=== PATIENT | female | born 1940 | race Caucasian/White ===

== ENCOUNTER 2016-04-20 16:59 | Emergency (ER) | payer MEDICARE, OTHER ==
[2016-04-20 18:37] LABS: Troponin I Less than 0.010 ng/mL (< 0.028)
[2016-04-20 18:45] LABS: Anion Gap 13 mmol/L (10-20); BUN (Urea Nitrogen) 20 mg/dL (9.8-20.1); Calc. Creatinine Clearance 0 mL/min (70-130); Calcium 9.8 mg/dL (7.8-10.44); Carbon Dioxide 24 mmol/L (23-31); Chloride 108 mmol/L (98-107); Estimated GFR-MDRD 74
--- NOTE | 2016-04-20 19:43 | ERRECORD ---
[facility] EMERGENCY RECORD HPI EXTREMITY (18:02 WMEI) CHIEF COMPLAINT: Denies injury, Patient presents for evaluation of pain, to the left lower leg, Denies swelling to the ankle, Denies tenderness. HISTORIAN: History provided by patient. MECHANISM OF INJURY: Unknown mechanism. LOCATION: Symptoms are localized, most severe in the left lower leg. TIME COURSE: Patient unable to describe onset of symptoms, Symptoms have resolved, pain intermittent especially at night over ant tibia mid to distal no pain on wt bearing. EXACERBATED BY: Patient's condition exacerbated by nothing. RELIEVED BY: Patient's condition relieved by nothing. ROS (18:04 WMEI) CONSTITUTIONAL: Historian denies chills, denies fever. EYES: Historian denies eye pain, denies eye discharge. ENT: Historian denies otalgia, reports rhinorrhea, reports sinus pain, denies sore throat. CARDIOVASCULAR: Historian denies chest pain, no radiation. RESPIRATORY: Historian reports cough, reports shortness of breath. SOB intermittent non exertional. GI: Historian denies abdominal pain, denies nausea, denies vomiting. GENITOURINARY FEMALE: Historian denies frequency, denies urgency. MUSCULOSKELETAL: Historian denies injury, denies joint stiffness, denies joint swelling. see hpi l ant leg pain. SKIN: Historian denies skin changes, denies skin lesions. NEUROLOGIC: Historian denies focal weakness, denies mental status changes, denies paresthesias. PSYCHIATRIC: Historian denies alcohol abuse, reports anxiety, denies depression. PAST MEDICAL HISTORY (17:14 LGIB) MEDICAL HISTORY: Past medical history includes gastrointestinal disease, irritable bowel syndrome, Flu vaccine not up to date, Tetanus not up to date, Pneumococcal vaccine not up to date, Past medical history includes gastrointestinal disease, gastroesophageal reflux disease, Past medical history includes pulmonary disease, asthma. FEMALE SURGICAL HISTORY: COLON RESECTION IN 1998, Surgical history of appendectomy, Surgical history of cholecystectomy, Surgical history of hysterectomy, Surgical history of tonsillectomy. PSYCHIATRIC HISTORY: No previous psychiatric history. SOCIAL HISTORY: Patient denies alcohol use, Patient denies drug use, Patient has no smoking history. FAMILY HISTORY: Pt's mother had diverticulitis. &a-1R&a+25V*p+0X*d0951C*c202B*c15G*c2P*p-0X&a-25V&a+1R Name: Kenzie Reis : 1940 F76 MedRec: [id number] AcctNum: [id number] Prepared: Annabella Apr 20, 2016 22:01 by Interface Page [address] [facility] EMERGENCY RECORD KNOWN ALLERGIES No Known Drug Intolerances CURRENT MEDICATIONS (17:15 LGIB) Advair HFA: HFA AEROSOL WITH ADAPTER (GRAM) : Strength - 45 mcg-21 mcg/actuation : INHALATION Patient Dose: Unknown. Zantac: CAPSULE : Strength - 150 mg : ORAL Patient Dose: Unknown. VITAL SIGNS VITAL SIGNS: Pulse: 79, Resp: 18 (Non-Labored), Temp: 98.7 (Oral), Pain: 0, O2 sat: 97 on Room Air, Time: 04/20/2016 17:09. (17:09 LGIB) BP: 162/77, Time: 04/20/2016 17:14. (17:14 LGIB) BP: 154/71, Pulse: 66, Resp: 20, Temp: 98.2 (Oral), Pain: 0, O2 sat: 96 on Room Air, Time: 04/20/2016 19:25. (19:25 LSMI) PHYSICAL EXAM (18:05 WMEI) CONSTITUTIONAL: Vital signs reviewed, Patient appears non toxic, Patient alert and oriented to person, place and time. HEAD: Head exam included findings of head atraumatic, normocephalic. EYES: Extraocular muscles intact, Conjunctiva normal, Sclera normal. ENT: Ear exam normal, Nose exam normal. NECK: Neck exam included findings of normal range of motion, Trachea midline. RESPIRATORY CHEST: Breath sounds clear, Chest exam included findings of chest movement symmetrical. CARDIOVASCULAR: Cardiovascular exam included findings of heart rate regular rate and rhythm, Heart sounds normal. ABDOMEN FEMALE: Abdominal exam included findings of abdomen nontender, Bowel sounds normal. UPPER EXTREMITY: Upper extremity exam included findings of inspection normal, range of motion normal. LOWER EXTREMITY: Lower extremity exam included findings of inspection normal, Range of motion normal, Pedal pulse normal, José Antonio's negative. NEURO: Culbertson coma scale 15, Neuro exam findings include patient oriented to person, place and time, Speech normal, Gait normal. SKIN: Skin exam included findings of skin warm, dry, and normal in color. LYMPHATIC: Lymphatic exam normal. PSYCHIATRIC: Psychiatric exam included findings of patient oriented to person place and time, Normal affect, Judgment normal, Insight normal. &a-1R&a+25V*p+0X*v4947N*c202B*c15G*c2P*p-0X&a-25V&a+1R Name: Kenzie Reis : 1940 F76 MedRec: [id number] AcctNum: [id number] Prepared: Annabella Apr 20, 2016 22:01 by Interface Page [address] [facility] EMERGENCY RECORD PROBLEM LIST No recorded problems DIAGNOSIS (19:19 WMEI) FINAL: PRIMARY: LEFT leg pain. PRESCRIPTION No recorded prescriptions DISPOSITION PATIENT: Disposition Type: Discharge, Disposition: *Discharge Home. (19:19 WMEI) Patient left the department. (19:34 LSMI) Matson: LGIB=LOKESH Lemon Lauren LSMI=ROSA Ramirez Leah WMEI=DO Gregory William &a-1R&a+25V*p+0X*e2106G*c202B*c15G*c2P*p-0X&a-25V&a+1R Name: Kenzie Reis : 1940 F76 MedRec: [id number] AcctNum: [id number] Prepared: Annabella Apr 20, 2016 22:01 by Interface Page 3 of 3 pMD MTDD
--- NOTE | 2016-04-20 19:51 | PICIS ---
[facility] EMERGENCY RECORD TRIAGE ([place] Apr 20, 2016 17:13 LGIB) TRIAGE NOTES: states it is hard to get a deep breath. also has been complaining of sharp pains in both legs. has recently had sinusitis. lungs clear in triage. ([place] Apr 20, 2016 17:13 LGIB) PATIENT: NAME: Kenzie Reis, AGE: 76, GENDER: female, : [place] 1940, TIME OF GREET: [place] Apr 20, 2016 16:59, PREFERRED LANGUAGE: Spanish, ETHNICITY: Not or , ECODE BILLING MAP: [facility], SSN: [id number], Zip Code: [address], KG WEIGHT: 68.04, PHONE: , , , PERSON ID: [id number], PAYMENT: [employer], PCP: DO PELAEZ JOHN SCOTT. ([place] Apr 20, 2016 17:13 LGIB) COMPLAINT: Left Leg Pain. ([place] Apr 20, 2016 17:13 LGIB) ADMISSION: URGENCY: 3 Urgent, ADMISSION SOURCE: Home, TRANSPORT: CAR, BED: TRIAGE. ([place] Apr 20, 2016 17:13 LGIB) SIRS SCORING: Heart Rate 55-109 (0), Temp range 96.8-101.1 (0), respiratory rate 12-24 (0), Mental Status altered: no (0). (17:37 LGIB) PROVIDERS: TRIAGE NURSE: Katherine Lemon RN. ([place] Apr 20, 2016 17:13 LGIB) VITAL SIGNS: Pulse 79, Resp 18, (Non-Labored), Temp 98.7, (Oral), Pain 0, O2 Sat 97, on Room Air, Time 04/20/2016 17:09. (17:09 LGIB) PREVIOUS VISIT ALLERGIES: No Known Drug Intolerances. ([place] Apr 20, 2016 17:13 LGIB) No Known Drug Intolerances. (17:14 LGIB) KNOWN ALLERGIES No Known Drug Intolerances CURRENT MEDICATIONS (17:15 LGIB) Advair HFA: HFA AEROSOL WITH ADAPTER (GRAM) : Strength - 45 mcg-21 mcg/actuation : INHALATION Patient Dose: Unknown. Zantac: CAPSULE : Strength - 150 mg : ORAL Patient Dose: Unknown. VITAL SIGNS VITAL SIGNS: Pulse: 79, Resp: 18 (Non-Labored), Temp: 98.7 (Oral), Pain: 0, O2 sat: 97 on Room Air, Time: 04/20/2016 17:09. (17:09 LGIB) BP: 162/77, Time: 04/20/2016 17:14. (17:14 LGIB) BP: 154/71, Pulse: 66, Resp: 20, Temp: 98.2 (Oral), Pain: 0, O2 sat: 96 on Room Air, Time: 04/20/2016 19:25. (19:25 LSMI) NURSING ASSESSMENT: EXTREMITY LOWER (17:25 LGIB) CONSTITUTIONAL: Complex assessment performed, Patient arrives ambulatory, Gait steady, History obtained from patient, Patient appears, anxious, Patient cooperative, Patient alert, &a-1R&a+25V*p+0X*p6394A*c202B*c15G*c2P*p-0X&a-25V&a+1R Name: Kenzie Reis : 1940 F76 MedRec: [id number] AcctNum: [id number] Prepared: Annabella Apr 20, 2016 22:07 by Interface Page [address] [facility] EMERGENCY RECORD Oriented to person, place and time, Skin warm, Skin dry, Skin normal in color, Mucous membranes pink, Mucous membranes moist, Patient is well-groomed, Patient complains of LEFT LEG PAIN. PAIN: cramping pain, to the left lower leg, Onset of pain 3 WEEKS PRIOR, INTERMITTENT, PT STATES IT HAPPENS AT RANDOM TIMES AND IT DOES NOT MATTER WHAT SHE IS DOING WHEN THE PAIN COMES ON. STATES IT HAS HAPPENED A FEW TIMES IN THE MIDDLE OF THE NIGHT., Pain exacerbated by nothing, Nothing has been tried to alleviate the pain. LEFT LOWER EXTREMITY: Left lower extremity assessment findings include capillary refill less than 2 seconds, Skin color normal, Skin temperature warm, Distal sensation intact, Muscle tone normal, muscle strength 5, dorsalis pedis pulse is +3. RIGHT LOWER EXTREMITY: Right lower extremity assessment findings include capillary refill less than 2 seconds, Skin color normal, Skin temperature warm, Distal sensation intact, Muscle tone normal, muscle strength 5, dorsalis pedis pulse is +3. SAFETY: Side rails up, Cart/Stretcher in lowest position, Family at bedside, Call light within reach, Hospital ID band on. NURSING PROCEDURE: DISCHARGE NOTE (19:30 LSMI) DISCHARGE: Patient discharged to home, ambulating without assistance, family driving, accompanied by friend, Summary of Care printed/ provided, Transition record given to patient, Discharge instructions given to patient, Simple or moderate discharge teaching performed, Notes: pt dc'd home in stable condition. voices understanding of dc instructions. NURSING PROCEDURE: EKG CHART (18:05 LGIB) EK lead EKG performed on the left chest, done by LOKESH Dallas. FOLLOW-UP: After procedure, EKG for interpretation given to Dr. Gregory. NURSING PROCEDURE: TRANSPORT TO TESTS TRANSPORT TO TESTS: Transport indicated to facilitate diagnosis, Patient transported to x-ray, via wheelchair, Accompanied by x-ray pest control chemical technician. (18:16 LGIB) FOLLOW-UP: After procedure, patient returned to emergency department. (18:22 LGIB) ORDER DETAILS Order Name: Basic Metabolic Panel, Status: Active, Time: 18:01 04/20/2016, User: ECTOR, - Ordered for: DO Gregory William, - Entered by: DO Gregory William - Annabella Apr 20, 2016 18:01, - Quantity: 1, Order Name: Cardiac Profile w/CKMB & Troponin - I, Status: Active, Time: 18:01 04/20/2016, User: ECTOR, - Ordered for: DO Gregory William, &a-1R&a+25V*p+0X*e9337L*c202B*c15G*c2P*p-0X&a-25V&a+1R Name: Kenzie Reis : 1940 F76 MedRec: [id number] AcctNum: [id number] Prepared: Annabella Apr 20, 2016 22:07 by Interface Page [address] [facility] EMERGENCY RECORD - Entered by: DO Gregory William - Annabella Apr 20, 2016 18:01, - Quantity: 1, Order Name: D-Dimer (Quantitative), Status: Active, Time: 18:01 04/20/2016, User: ECTOR, - Ordered for: DO Gregory William, - Entered by: DO Bri Ulices Shonda Winchester Apr 20, 2016 18:01, - Quantity: 1, Order Name: EKG 12 Lead in Emergency Room, Status: Active, Time: 18:01 04/20/2016, User: [employer], - Ordered for: DO Gregory William, - Entered by: DO Gregory William - Sun Apr 20, 2016 18:01, - Quantity: 1, Order Name: XR Tib Fib Lt Leg 2 View, Status: Active, Time: 18:02 04/20/2016, User: WMEI, - Ordered for: BriDO William, - Entered by: DO Bri Ulices Shonda Winchester Apr 20, 2016 18:02, - Quantity: 1. HPI EXTREMITY (18:02 WMEI) CHIEF COMPLAINT: Denies injury, Patient presents for evaluation of pain, to the left lower leg, Denies swelling to the ankle, Denies tenderness. HISTORIAN: History provided by patient. MECHANISM OF INJURY: Unknown mechanism. LOCATION: Symptoms are localized, most severe in the left lower leg. TIME COURSE: Patient unable to describe onset of symptoms, Symptoms have resolved, pain intermittent especially at night over ant tibia mid to distal no pain on wt bearing. EXACERBATED BY: Patient's condition exacerbated by nothing. RELIEVED BY: Patient's condition relieved by nothing. ROS (18:04 WMEI) CONSTITUTIONAL: Historian denies chills, denies fever. EYES: Historian denies eye pain, denies eye discharge. ENT: Historian denies otalgia, reports rhinorrhea, reports sinus pain, denies sore throat. CARDIOVASCULAR: Historian denies chest pain, no radiation. RESPIRATORY: Historian reports cough, reports shortness of breath. SOB intermittent non exertional. GI: Historian denies abdominal pain, denies nausea, denies vomiting. GENITOURINARY FEMALE: Historian denies frequency, denies urgency. MUSCULOSKELETAL: Historian denies injury, denies joint stiffness, denies joint swelling. see hpi l ant leg pain. SKIN: Historian denies skin changes, denies skin lesions. NEUROLOGIC: Historian denies focal weakness, denies mental status changes, denies paresthesias. PSYCHIATRIC: Historian denies alcohol abuse, reports &a-1R&a+25V*p+0X*f1344X*c202B*c15G*c2P*p-0X&a-25V&a+1R Name: Kenzie Reis : 1940 F76 MedRec: [id number] AcctNum: [id number] Prepared: Annabella Apr 20, 2016 22:07 by Interface Page [address] [facility] EMERGENCY RECORD anxiety, denies depression. PAST MEDICAL HISTORY (17:14 LGIB) MEDICAL HISTORY: Past medical history includes gastrointestinal disease, irritable bowel syndrome, Flu vaccine not up to date, Tetanus not up to date, Pneumococcal vaccine not up to date, Past medical history includes gastrointestinal disease, gastroesophageal reflux disease, Past medical history includes pulmonary disease, asthma. FEMALE SURGICAL HISTORY: COLON RESECTION IN 1998, Surgical history of appendectomy, Surgical history of cholecystectomy, Surgical history of hysterectomy, Surgical history of tonsillectomy. PSYCHIATRIC HISTORY: No previous psychiatric history. SOCIAL HISTORY: Patient denies alcohol use, Patient denies drug use, Patient has no smoking history. FAMILY HISTORY: Pt's mother had diverticulitis. PHYSICAL EXAM (18:05 WMEI) CONSTITUTIONAL: Vital signs reviewed, Patient appears non toxic, Patient alert and oriented to person, place and time. HEAD: Head exam included findings of head atraumatic, normocephalic. EYES: Extraocular muscles intact, Conjunctiva normal, Sclera normal. ENT: Ear exam normal, Nose exam normal. NECK: Neck exam included findings of normal range of motion, Trachea midline. RESPIRATORY CHEST: Breath sounds clear, Chest exam included findings of chest movement symmetrical. CARDIOVASCULAR: Cardiovascular exam included findings of heart rate regular rate and rhythm, Heart sounds normal. ABDOMEN FEMALE: Abdominal exam included findings of abdomen nontender, Bowel sounds normal. UPPER EXTREMITY: Upper extremity exam included findings of inspection normal, range of motion normal. LOWER EXTREMITY: Lower extremity exam included findings of inspection normal, Range of motion normal, Pedal pulse normal, José Antonio's negative. NEURO: Ryanne coma scale 15, Neuro exam findings include patient oriented to person, place and time, Speech normal, Gait normal. SKIN: Skin exam included findings of skin warm, dry, and normal in color. LYMPHATIC: Lymphatic exam normal. PSYCHIATRIC: Psychiatric exam included findings of patient oriented to person place and time, Normal affect, Judgment normal, Insight normal. EVENTS TRANSFER: Triage to Emergency Triage. (Annabella Apr 20, 2016 17:13 &a-1R&a+25V*p+0X*j8742V*c202B*c15G*c2P*p-0X&a-25V&a+1R Name: Kenzie Reis : 1940 F76 MedRec: [id number] AcctNum: [id number] Prepared: Annabella Apr 20, 2016 22:07 by Interface Page [address] [facility] EMERGENCY RECORD LGIB) Emergency Triage to Waiting. (17:15 LGIB) Emergency Waiting to Emergency Room -02. (17:25 LGIB) Removed from Emergency Emergency Room -02. (19:34 LSMI) PROBLEM LIST No recorded problems DIAGNOSIS (19:19 WMEI) FINAL: PRIMARY: LEFT leg pain. DISPOSITION PATIENT: Disposition Type: Discharge, Disposition: *Discharge Home. (19:19 WMEI) Patient left the department. (19:34 LSMI) INSTRUCTION (19:20 WMEI) DISCHARGE: LEG CRAMPS. FOLLOWUP: DO PELAEZ JOHN SCOTT, [facility], [address] [place] [address], . SPECIAL: Follow-up with your primary physician as needed. PRESCRIPTION No recorded prescriptions IMAGING *EKG: Image captured from scanner. (18:13 LGIB) *DISCHARGE INSTRUCTIONS RECEIPT: Image captured from scanner. (19:31 LSMI) *SUPPLY CHARGE SHEET: Image captured from scanner. (19:31 LSMI) ADMIN (21:56 WMEI) DIGITAL SIGNATURE: DO Gregory William. Matson: LGIB=LOKESH Lemon, Katherine LSMI=ROSA Ramirez Leah WMEI=DO Gregory William &a-1R&a+25V*p+0X*p9856U*c202B*c15G*c2P*p-0X&a-25V&a+1R Name: Kenzie Reis : 1940 F76 MedRec: [id number] AcctNum: [id number] Prepared: Annabella Apr 20, 2016 22:07 by Interface Page 5 of 5 pMD MTDD
--- NOTE | 2016-04-20 20:43 | RAD ---
LEFT LEG TWO VIEWS: Date: 04-20-16 FINDINGS: No acute fracture was seen. There was some minimal periosteal prominence along the proximal fibular shaft that may be just age related. I doubt that this is a stress injury. No areas of bony destru ction were seen. The visible portions of the knee and ankle joints showed no significant findings. IMPRESSION: No acute finding. POS: HOME
== END 2016-04-20 19:30 | disposition home or self-care (01) ==
LOC: BURERS 16:59
DX: M79.662 Pain in left lower leg (principal); K21.9 Gastro-esophageal reflux disease without esophagitis; J45.909 Unspecified asthma, uncomplicated; Z90.49 Acquired absence of other specified parts of digestive tract
CPT/HCPCS: 80048; 82553; 84484; 85379; 93005

== ENCOUNTER 2016-09-15 20:01 | Emergency (ER) | payer MEDICARE, OTHER ==
[2016-09-15 20:39] LABS: #Basophils 0.1 thou/uL (0.0-0.2); #Eosinphils 0.1 thou/uL (0.0-0.7); #Lymphocytes 2.5 thou/uL (1.20-3.40); #Monocytes 0.5 thou/uL (0.11-0.59); #Neutrophils 2.8 thou/uL (1.40-6.50); %Basophils 1.8 % (0.0-1.0); %Eosinophils 2.4 % (0.0-10.0); %Lymphocytes 40.8 % (21.0-51.0); %Monocytes 8.3 % (0.0-10.0); %Neutrophils 46.6 % (42.0-75.0); Hemoglobin 13.7 g/dL (12.0-16.0); Mean Corpuscular HGB CONC 34.5 g/dL (32.0-36.0); Mean Corpuscular Volume 95.7 fl (81.0-99.0); Mean Platelet Volume 8.9 fL (7.4-10.4); Platelet Count 267 thou/uL (130-400); Red Blood Cell (RBC) Count 4.14 mill/uL (4.20-5.40); White Blood Cell (WBC) Count 6.1 thou/uL (4.8-10.8)
[2016-09-15 20:52] LABS: ALT (SGPT) 13 U/L (8-55); AST (SGOT) 11 U/L (5-34); Alkaline Phosphatase 48 U/L (40-150); Anion Gap 14 mmol/L (10-20); BUN (Urea Nitrogen) 17 mg/dL (9.8-20.1); Bilirubin, Total 0.3 mg/dL (0.2-1.2); CK (CPK) 60 U/L (29-168); Calc. Creatinine Clearance 0 mL/min (70-130); Calcium 9.5 mg/dL (7.8-10.44); Carbon Dioxide 27 mmol/L (23-31); Chloride 105 mmol/L (98-107); Estimated GFR-MDRD 70; Globulin 3.3 g/dL (2.4-3.5); Glucose 107 mg/dL (83-110); Potassium 4.8 mmol/L (3.5-5.1); Protein, Total 7.3 g/dL (6.0-8.3); Sodium 141 mmol/L (136-145)
[2016-09-15 20:59] LABS: CKMB 1.2 ng/mL (0-6.6); Troponin I Less than 0.010 ng/mL (< 0.028)
[2016-09-15 21:38] LABS: Bilirubin Negative (Negative); Blood, Urine Negative (Negative); Clarity Clear (Clear); Glucose, Urine (Dipstick) Negative (Negative); Leukocyte Negative (Negative); Nitrite Negative (Negative); Protein, Urine (Dipstick) Negative (Neg-Trace); Specific Gravity, Urine 1.015 (1.005-1.030); Urobilinogen 0.2 mg/dL (0.2-1.0); pH, Urine 7.5 (5.0-9.0)
== END 2016-09-15 22:06 | disposition home or self-care (01) ==
LOC: BURERS 20:01
DX: R42 Dizziness and giddiness (principal); R53.1 Weakness; K21.9 Gastro-esophageal reflux disease without esophagitis; J45.909 Unspecified asthma, uncomplicated; Z79.899 Other long term (current) drug therapy
CPT/HCPCS: 80053; 81003; 82550; 82553; 84443; 84484; 85025; 93005; 94760; 96360

== ENCOUNTER 2016-09-26 23:55 | Emergency (ER) | payer MEDICARE, OTHER ==
[2016-09-27] MEDS ORDERED: Meclizine HCl 25 MG TAB ONE (00:47)
[2016-09-27 00:55] LABS: Bilirubin Negative (Negative); Blood, Urine Trace (Negative); Clarity Clear (Clear); Glucose, Urine (Dipstick) Negative (Negative); Leukocyte Trace (Negative); Nitrite Negative (Negative); Protein, Urine (Dipstick) Negative (Neg-Trace); Urobilinogen 0.2 mg/dL (0.2-1.0)
[2016-09-27 01:02] LABS: Bacteria/HPF None Seen HPF (None Seen); RBC/HPF 0-3 HPF (0-3); Squamous Epithelial 0-3 HPF (0-3); WBC/HPF 0-3 HPF (0-3)
[2016-09-27 01:11] LABS: #Basophils 0.1 thou/uL (0.0-0.2); #Eosinphils 0.2 thou/uL (0.0-0.7); #Lymphocytes 2.4 thou/uL (1.20-3.40); #Monocytes 0.5 thou/uL (0.11-0.59); #Neutrophils 2.1 thou/uL (1.40-6.50); %Basophils 2.2 % (0.0-1.0); %Lymphocytes 45.8 % (21.0-51.0); %Monocytes 8.5 % (0.0-10.0); %Neutrophils 40.5 % (42.0-75.0); Hemoglobin 14.3 g/dL (12.0-16.0); Mean Corpuscular HGB CONC 35.4 g/dL (32.0-36.0); Mean Corpuscular Hemoglobin 33.1 pg (27.0-31.0); Mean Corpuscular Volume 93.5 fl (81.0-99.0); Mean Platelet Volume 8.7 fL (7.4-10.4); Platelet Count 240 thou/uL (130-400); RBC Distribution Width 11.7 % (11.5-14.5); Red Blood Cell (RBC) Count 4.32 mill/uL (4.20-5.40); White Blood Cell (WBC) Count 5.3 thou/uL (4.8-10.8)
[2016-09-27 01:30] LABS: ALT (SGPT) 14 U/L (8-55); AST (SGOT) 15 U/L (5-34); Albumin 4.5 g/dL (3.4-4.8); Alkaline Phosphatase 44 U/L (40-150); Anion Gap 15 mmol/L (10-20); BUN (Urea Nitrogen) 16 mg/dL (9.8-20.1); Bilirubin, Total 0.4 mg/dL (0.2-1.2); Calc. Creatinine Clearance 0 mL/min (70-130); Calcium 9.7 mg/dL (7.8-10.44); Carbon Dioxide 25 mmol/L (23-31); Chloride 106 mmol/L (98-107); Estimated GFR-MDRD 70; Globulin 3.1 g/dL (2.4-3.5); Glucose 100 mg/dL (83-110); Protein, Total 7.6 g/dL (6.0-8.3); Sodium 142 mmol/L (136-145)
--- NOTE | 2016-09-27 11:17 | CT ---
PRELIMINARY REPORT/[facility]/EMERGENCY AFTER HOURS PROCEDURE: EXAM: CT Head Without Intravenous Contrast CLINICAL HISTORY: 76 years old, female; Signs and symptoms; Dizziness; Patient HX: 'feeling jittery for about 3 weeks" pt states dizziness started today. TECHNIQUE: Axial computed tomography images of the head/brain without intravenous contrast. This CT exam was pe rformed using one or more of the following dose reduction techniques: automated exposure control, ad justment of the mA and/or kV according to patient size, and/or use of iterative reconstruction techn ique. COMPARISON: No relevant prior studies available. FINDINGS: Mild cerebral volume loss. Chronic small vessel disease. No intracranial hemorrhage. No mass, mass effect or midline shift. No hydrocephalus or extra-axial fluid collections. Ventricles, cortical sulci and basal cisterns are appropriate for age without effacement. Fuentes-white matter differentiation is preserved. No dense MCA sign. Status post left cataract surgery. Paranasal sinuses are clear. Mastoid air cells are clear. No acute fracture. Extra calvarial soft tissues unremarkable. IMPRESSION: No acute intracranial abnormality. Thank you for allowing us to participate in the care of your patient. Dictated and Authenticated by: Americo Ambrose MD 09/27/2016 1:02 AM Central Time ([place] \\T\\ [place]iel[place]) FINAL REPORT CT OF THE BRAIN WITHOUT CONTRAST: Date: 09/27/[address] was done for evaluation of dizziness. FINDINGS: Ventricles normal in size with no shift. No intracranial bleeding, mass, or sigh of stroke found. Th e fuentes-white distention was normal. Posterior fossa was unremarkable. The mastoid air cells and visi ble paranasal sinuses were clear. IMPRESSION: No acute intracranial findings. Report in agreement with preliminary reading by Liza. POS: HOME
== END 2016-09-27 01:43 | disposition home or self-care (01) ==
LOC: BURERS 23:55
DX: H83.09 Labyrinthitis, unspecified ear (principal); R00.2 Palpitations; K21.9 Gastro-esophageal reflux disease without esophagitis; J45.909 Unspecified asthma, uncomplicated; Z79.899 Other long term (current) drug therapy
CPT/HCPCS: 70450; 80053; 81003; 81015; 85025; 93005

== ENCOUNTER 2016-10-19 20:08 | Emergency (ER) | payer MEDICARE, OTHER ==
[2016-10-19 20:55] LABS: #Basophils 0.1 thou/uL (0.0-0.2); #Lymphocytes 1.5 thou/uL (1.20-3.40); #Monocytes 0.5 thou/uL (0.11-0.59); #Neutrophils 7.9 thou/uL (1.40-6.50); %Basophils 0.7 % (0.0-1.0); %Eosinophils 0.1 % (0.0-10.0); %Lymphocytes 14.8 % (21.0-51.0); %Monocytes 5.2 % (0.0-10.0); %Neutrophils 79.1 % (42.0-75.0); Hemoglobin 14.9 g/dL (12.0-16.0); Mean Corpuscular HGB CONC 33.8 g/dL (32.0-36.0); Mean Corpuscular Hemoglobin 31.8 pg (27.0-31.0); Mean Platelet Volume 8.1 fL (7.4-10.4); Platelet Count 282 thou/uL (130-400); RBC Distribution Width 12.3 % (11.5-14.5); Red Blood Cell (RBC) Count 4.69 mill/uL (4.20-5.40)
[2016-10-19 21:07] LABS: ALT (SGPT) 18 U/L (8-55); AST (SGOT) 16 U/L (5-34); Albumin 4.7 g/dL (3.4-4.8); Alkaline Phosphatase 57 U/L (40-150); Anion Gap 21 mmol/L (10-20); BUN (Urea Nitrogen) 34 mg/dL (9.8-20.1); Bilirubin, Total 0.7 mg/dL (0.2-1.2); CKMB 1.5 ng/mL (0-6.6); Calc. Creatinine Clearance 0 mL/min (70-130); Calcium 10.4 mg/dL (7.8-10.44); Carbon Dioxide 22 mmol/L (23-31); Chloride 101 mmol/L (98-107); Estimated GFR-MDRD 32; Globulin 3.1 g/dL (2.4-3.5); Glucose 139 mg/dL (83-110); Lipase 14 U/L (8-78); Potassium 5.4 mmol/L (3.5-5.1); Protein, Total 7.8 g/dL (6.0-8.3); Sodium 139 mmol/L (136-145); Troponin I Less than 0.010 ng/mL (< 0.028)
[2016-10-19] MEDS ORDERED: Lidocaine Viscous Sol 2% 15 ml UD Cup ONE (21:48)
--- NOTE | 2016-10-19 22:17 | CT ---
CT ABDOMEN AND PELVIS WITHOUT CONTRAST: Date: 10-19-[address] of the abdomen and pelvis was performed without IV contrast as the patient's creatinine an d DFR were not acceptable for such. Oral contrast was also deferred due to nausea and vomiting. Axia l slices were acquired then coronal reconstructions were done. Comparison: 12-26-15 FINDINGS: This study is similar to the 2016 exam in that it shows a partial distal small bowel obstruction at the level of the ileum, just a few feet short of the ileocecal valve. Maximum width of small bowel i s 4.1 cm today. The colon is not distended. There are no inflammatory changes around bowel. No free air or free fluid was seen. There is abundant fecal material in the right colon in particular. The lung bases are clear. The liver and spleen were unremarkable. There has been a prior cholecystec ramon. A calcific density located near the lower portion of the liver was present last time and is of no concern. A rounded calcification in the tail or the pancreas could be a partially calcified sple mame artery aneurysm. It is unchanged from before. The kidneys, adrenal glands, and aorta showed no a cute findings. 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 CT of the pelvis was only remarkable for some of the distended loops of ileum. No free fluid or infl ammatory changes were seen here. The calcific density between the bladder and rectum was present bef ore and has not changed. IMPRESSION: Findings consistent with a distal small bowel obstruction in the distal ileum a few feet before the ileocecal valve. This is the same location as last year. Findings called to Dr. Wheeler at 2133 on 10-19-16. POS: HOME
[2016-10-19] MEDS ORDERED: Ondansetron HCl/PF 4 MG/2 ML Vial ONE (22:33)
== END 2016-10-19 22:38 | disposition short-term general hospital (02) ==
LOC: BURERS 20:08
DX: K56.60 Unspecified intestinal obstruction (principal); N17.9 Acute kidney failure, unspecified; K21.9 Gastro-esophageal reflux disease without esophagitis
CPT/HCPCS: 74176; 80053; 82553; 83605; 83690; 84484; 85025; 93005; 96361; 96374; J2405

== ENCOUNTER 2017-03-30 14:12 | Outpatient (CLI) | payer MEDICARE, OTHER ==
--- NOTE | 2017-03-30 19:46 | RAD ---
CHEST TWO VIEWS: Date: 03-30-17 Comparison: 12-16-15 FINDINGS: The heart is normal in size. There is no vascular congestion, edema, or pleural effusion. The lungs a re hyperexpanded. A little density in the right cardiophrenic angle is probably a fat pad, though it is difficult to be sure on the PA film. I cannot confirm any infiltrate on the lateral. The bony stru ctures appear intact. IMPRESSION: Hyperexpanded lungs, but no definite acute findings otherwise. Consider follow up chest film if signs and symptoms of pneumonia are present. POS: HOME
== END 2017-03-30 14:13 | disposition home or self-care (01) ==
LOC: BURRAD 14:12
PROVIDERS: ATTEND Family Medicine
DX: J45.21 Mild intermittent asthma with (acute) exacerbation (principal); J98.4 Other disorders of lung
CPT/HCPCS: 71020

== ENCOUNTER 2017-04-14 08:53 | Emergency (ER) | payer MEDICARE, OTHER ==
[2017-04-14 09:39] LABS: #Basophils 0.1 thou/uL (0.0-0.2); #Eosinphils 0.1 thou/uL (0.0-0.7); #Lymphocytes 2.1 thou/uL (1.20-3.40); #Monocytes 0.5 thou/uL (0.11-0.59); #Neutrophils 4.3 thou/uL (1.40-6.50); %Basophils 1.1 % (0.0-1.0); %Eosinophils 1.1 % (0.0-10.0); %Lymphocytes 29.5 % (21.0-51.0); %Neutrophils 61.3 % (42.0-75.0); Hemoglobin 13.2 g/dL (12.0-16.0); Mean Corpuscular HGB CONC 33.9 g/dL (32.0-36.0); Mean Corpuscular Hemoglobin 32.5 pg (27.0-31.0); Mean Platelet Volume 6.4 fL (7.4-10.4); Platelet Count 249 thou/uL (130-400); RBC Distribution Width 12.6 % (11.5-14.5); Red Blood Cell (RBC) Count 4.07 mill/uL (4.20-5.40)
[2017-04-14 09:54] LABS: Anion Gap 15 mmol/L (10-20); BUN (Urea Nitrogen) 20 mg/dL (9.8-20.1); Calc. Creatinine Clearance 0 mL/min (70-130); Calcium 9.2 mg/dL (7.8-10.44); Carbon Dioxide 27 mmol/L (23-31); Chloride 104 mmol/L (98-107); Estimated GFR-MDRD 78; Glucose 94 mg/dL (83-110); Potassium 4.5 mmol/L (3.5-5.1); Sodium 141 mmol/L (136-145)
[2017-04-14 09:59] LABS: CKMB 1.2 ng/mL (0-6.6); Troponin I Less than 0.010 ng/mL (< 0.028)
== END 2017-04-14 10:26 | disposition home or self-care (01) ==
LOC: BURERS 08:53
DX: I10 Essential (primary) hypertension (principal); R07.89 Other chest pain; J45.909 Unspecified asthma, uncomplicated
CPT/HCPCS: 36415; 80048; 82553; 84443; 84484; 85025; 93005

== ENCOUNTER 2017-10-12 09:21 | Emergency (ER) | payer MEDICARE ==
[2017-10-12] MEDS ORDERED: Aggrastat 12.5 MG/250 ML 0 ML ONE (09:37)
[2017-10-12] MEDS ORDERED: Nitroglycerin 0.4 MG TAB (25 Tab Bottle) ONE (09:37)
[2017-10-12 09:40] LABS: #Basophils 0.1 thou/uL (0.0-0.2); #Eosinphils 0.1 thou/uL (0.0-0.7); #Lymphocytes 1.9 thou/uL (1.20-3.40); #Monocytes 0.4 thou/uL (0.11-0.59); #Neutrophils 3.1 thou/uL (1.40-6.50); %Basophils 1.2 % (0.0-1.0); %Eosinophils 2.5 % (0.0-10.0); %Lymphocytes 33.5 % (21.0-51.0); %Monocytes 7.8 % (0.0-10.0); %Neutrophils 55.1 % (42.0-75.0); Hemoglobin 13.4 g/dL (12.0-16.0); Mean Corpuscular HGB CONC 35.7 g/dL (32.0-36.0); Mean Corpuscular Hemoglobin 30.2 pg (27.0-31.0); Mean Corpuscular Volume 84.6 fL (78.0-98.0); Mean Platelet Volume 6.4 fL (7.4-10.4); Platelet Count 234 thou/uL (130-400); RBC Distribution Width 11.6 % (11.5-14.5); Red Blood Cell (RBC) Count 4.42 mill/uL (4.20-5.40); White Blood Cell (WBC) Count 5.7 thou/uL (4.8-10.8)
[2017-10-12] MEDS ORDERED: Nitroglycerin 2% Ointment 1 INCH/1 GM Packet ONE (09:51)
--- NOTE | 2017-10-12 09:57 | RAD ---
FRONTAL VIEW CHEST: Date: 10/12/17 INDICATION: Chest pain with history of asthma. FINDINGS: There is patchy opacification of the lower lung zones and a slight interstitial prominence to the per ihilar regions bilaterally. Cardiac silhouette is accentuated by portable technique. There is a surgi jessica anchor at the right shoulder. IMPRESSION: Mild patchy and interstitial opacities. This could relate to edema or alternatively pneumonitis. Shantanu mmend clinical correlation. Imaging follow-up with 2 view chest may prove useful as indicated. POS: [facility]
[2017-10-12 09:58] LABS: ALT (SGPT) 16 U/L (8-55); AST (SGOT) 17 U/L (5-34); Albumin 4.1 g/dL (3.4-4.8); Alkaline Phosphatase 50 U/L (40-150); Anion Gap 15 mmol/L (10-20); BUN (Urea Nitrogen) 15 mg/dL (9.8-20.1); Bilirubin, Total 0.7 mg/dL (0.2-1.2); CK (CPK) 53 U/L (29-168); Calc. Creatinine Clearance 0 mL/min (70-130); Calcium 9.7 mg/dL (7.8-10.44); Carbon Dioxide 23 mmol/L (23-31); Chloride 107 mmol/L (98-107); Estimated GFR-MDRD 79; Globulin 2.8 g/dL (2.4-3.5); Glucose 102 mg/dL (83-110); Lipase 13 U/L (8-78); Potassium 4.2 mmol/L (3.5-5.1); Protein, Total 6.9 g/dL (6.0-8.3)
[2017-10-12 10:00] LABS: Troponin I Less than 0.010 ng/mL (< 0.028)
[2017-10-12 10:08] LABS: Sodium 141 mmol/L (136-145)
== END 2017-10-12 11:09 | disposition short-term general hospital (02) ==
LOC: BURERS 09:21
DX: R07.9 Chest pain, unspecified (principal); J45.909 Unspecified asthma, uncomplicated; Z79.899 Other long term (current) drug therapy
CPT/HCPCS: 71045; 80053; 82553; 83690; 84484; 85025; 85379; 93005; 94760; J3246

== ENCOUNTER 2018-10-20 16:12 | Outpatient (CLI) | payer MEDICARE ==
--- NOTE | 2018-10-20 19:03 | RAD ---
RIGHT FOREARM TWO VIEWS: 10/20/18 No fracture was seen. The radius and ulna appear intact. No joint effusion was suggested at the elbow . IMPRESSION: No acute finding. POS: HOME
--- NOTE | 2018-10-20 19:04 | RAD ---
RIGHT HAND THREE VIEWS: 10/20/18 No fracture was seen. The bones of the hand and wrist all appeared intact. IMPRESSION: No acute findings. POS: HOME
--- NOTE | 2018-10-20 19:12 | RAD ---
RIGHT WRIST THREE VIEWS: 10/20/18 No fracture was seen. The distance between the scaphoid and lunate, however, is excessive at 3.5 mm. This raises the possibility of scapholunate dissociation which can be a cause for wrist pain. The rem ainder of the exam showed no acute findings. IMPRESSION: Possible scapholunate dissociation. Code T POS: HOME
== END 2018-10-20 16:13 | disposition home or self-care (01) ==
LOC: BURRAD 16:12
PROVIDERS: ATTEND Nurse Practitioner Family
DX: S69.91XA Unspecified injury of right wrist, hand and finger(s), initial encounter (principal)

== ENCOUNTER 2018-11-28 08:39 | Emergency (ER) | payer MEDICARE ==
[2018-11-28 09:04] LABS: Bilirubin Negative (Negative); Blood, Urine Large (Negative); Clarity Cloudy (Clear); Glucose, Urine (Dipstick) 100 mg/dL (Negative); Leukocyte Large (Negative); Nitrite Negative (Negative); Protein, Urine (Dipstick) 100 mg/dL (Neg-Trace); Urobilinogen 0.2 mg/dL (Less than 2)
[2018-11-28 09:09] LABS: RBC/HPF 21-50 HPF (0-3)
[2018-11-28] MEDS ORDERED: Sulfameth/Trimethoprim DS 800-160mg TAB ONE (09:09)
[2018-11-28] MEDS ORDERED: Nitrofurantoin Monohyd/M-Cryst 100 MG CAP ONE (09:09)
[2018-11-28 09:10] LABS: Bacteria/HPF 1+ HPF (None Seen); Squamous Epithelial 0-3 HPF (0-3); WBC/HPF Greater than 50 HPF (0-3)
== END 2018-11-28 09:07 | disposition home or self-care (01) ==
LOC: BURERS 08:39
DX: N39.0 Urinary tract infection, site not specified (principal); K21.9 Gastro-esophageal reflux disease without esophagitis; J45.909 Unspecified asthma, uncomplicated; Z79.51 Long term (current) use of inhaled steroids
CPT/HCPCS: 81003; 81015; 87086; 99283

== ENCOUNTER 2019-04-07 12:10 | Outpatient (CLI) | payer MEDICARE ==
--- NOTE | 2019-04-07 13:11 | RAD ---
RADIOGRAPH CHEST 2 VIEWS: DATE: 04/07/2019 HISTORY: 79-year-old female with pneumonia FINDINGS: There is no airspace density, pulmonary edema, pleural effusion, pneumothorax, or cardiomegaly. IMPRESSION: No acute cardiopulmonary findings.
== END 2019-04-07 12:11 | disposition home or self-care (01) ==
LOC: BURRAD 12:10
PROVIDERS: ATTEND Allergy & Immunology
DX: J18.9 Pneumonia, unspecified organism (principal)
CPT/HCPCS: 71046

== ENCOUNTER 2020-02-25 08:50 | Emergency (ER) | payer MEDICARE ==
[2020-02-25 09:28] LABS: #Basophils 0.1 thou/uL (0.0-0.2); #Eosinphils 0.1 thou/uL (0.0-0.7); #Lymphocytes 1.5 thou/uL (1.20-3.40); #Monocytes 0.4 thou/uL (0.11-0.59); #Neutrophils 2.4 thou/uL (1.40-6.50); %Basophils 1.9 % (0.0-1.0); %Eosinophils 1.6 % (0.0-10.0); %Lymphocytes 33.7 % (21.0-51.0); %Monocytes 8.5 % (0.0-10.0); %Neutrophils 54.3 % (42.0-75.0); Mean Corpuscular HGB CONC 32.1 g/dL (32.0-36.0); Mean Corpuscular Hemoglobin 30.7 pg (27.0-31.0); Mean Corpuscular Volume 95.7 fL (78.0-98.0); Mean Platelet Volume 8.2 fL (7.4-10.4); Platelet Count 238 thou/uL (130-400); RBC Distribution Width 12.3 % (11.5-14.5); Red Blood Cell (RBC) Count 4.54 mill/uL (4.20-5.40); White Blood Cell (WBC) Count 4.4 thou/uL (4.8-10.8)
[2020-02-25 09:34] LABS: Bilirubin Small (Negative); Blood, Urine Small (Negative); Clarity Clear (Clear); Glucose, Urine (Dipstick) Negative (Negative); Ketone, Urine Trace mg/dL (Negative); Leukocyte Small (Negative); Nitrite Negative (Negative); Protein, Urine (Dipstick) Trace mg/dL (Neg-Trace); Specific Gravity, Urine 1.025 (1.005-1.030); Urobilinogen 0.2 mg/dL (Less than 2); pH, Urine 5.5 (5.0-9.0)
[2020-02-25 09:43] LABS: ALT (SGPT) 17 U/L (8-55); AST (SGOT) 15 U/L (5-34); Albumin 4.1 g/dL (3.4-4.8); Alkaline Phosphatase 52 U/L (40-110); Anion Gap 17 mmol/L (10-20); BUN (Urea Nitrogen) 13 mg/dL (9.8-20.1); Bilirubin, Total 0.7 mg/dL (0.2-1.2); Calc. Creatinine Clearance 0 mL/min (70-130); Calcium 9.5 mg/dL (7.8-10.44); Carbon Dioxide 23 mmol/L (23-31); Chloride 105 mmol/L (98-107); Estimated GFR-MDRD 71; Globulin 2.7 g/dL (2.4-3.5); Glucose 100 mg/dL (83-110); Lipase 17 U/L (8-78); Potassium 4.1 mmol/L (3.5-5.1); Protein, Total 6.8 g/dL (6.0-8.3); Sodium 141 mmol/L (136-145)
[2020-02-25 09:44] LABS: Bacteria/HPF Rare-Few HPF (None Seen); Mucous/LPF 2+ LPF (<2+); RBC/HPF 0-3 HPF (0-3); Squamous Epithelial 0-3 HPF (0-3); WBC/HPF 0-3 HPF (0-3)
--- NOTE | 2020-02-25 11:07 | CT ---
CT BRAIN WITHOUT CONTRAST: Date: 02/25/[address] was done and compared with the 09/27/2016 study. There has been no adverse interval change. The ventricles are normal in size with no shift. No intrac ranial bleeding or extra-axial hematoma seen. The skull appears intact. The visible paranasal sinuses are clear. IMPRESSION: No acute intracranial findings. Preliminary report called to Aguilar in the ER at 0942 hours on 02/25/2020. CODE CR. POS: HOME
--- NOTE | 2020-02-25 11:08 | RAD ---
PORTABLE CHEST: Date: 02/25/2020 An AP portable film at 0947 hours is compared with a 04/07/2019 study. The heart is normal in size and the lungs are clear. There is no vascular congestion or edema. No pne umothorax or pleural effusion seen. There is no widening or shift of the mediastinum. The bony struct ures appear intact. IMPRESSION: Stable exam, showing no acute findings. POS: HOME
[2020-02-25] MEDS ORDERED: Iopamidol 370 76% 100 ML VIAL ONE (12:15)
--- NOTE | 2020-02-25 13:36 | CT ---
CT ANGIO OF THE CHEST: 02/25/[address] of the chest was done after a bolus of IV contrast in this patient with a slightly elevated D-dimer. MIP reconstructions were done after scanning. There is excellent opacification of the pulmonary arteries. No filling defects were seen to suggest e mboli. There is no sign of aortic aneurysm or dissection. No pericardial effusion was seen. The rosa nary arteries fill with contrast without signs of excessive calcification in them. There is no sign of mediastinal mass, hematoma or adenopathy. The lungs are clear. No infiltrate, effusion, or mass was seen. At most, there may be some minor depe ndent atelectasis in the left base. No fractures were detected. Scans into the upper abdomen showed n o acute findings in the areas scanned. There may be a small splenic artery aneurysm, no more than abo ut 1.5 cm in size which is probably not significant. A final finding is global enlargement of the thyroid gland without definite mass seen. IMPRESSION: 1. No evidence of pulmonary embolism or other acute thoracic change. 2. Thyroid enlargement. Preliminary report called to Juanita in ER at 1037 on 02/25/20. POS: HOME
== END 2020-02-25 10:49 | disposition home or self-care (01) ==
LOC: BURERS 08:50
DX: R55 Syncope and collapse (principal); S00.93XA Contusion of unspecified part of head, initial encounter; R07.89 Other chest pain; K21.9 Gastro-esophageal reflux disease without esophagitis; J45.909 Unspecified asthma, uncomplicated; R29.700 NIHSS score 0; W22.8XXA Striking against or struck by other objects, initial encounter; Y92.091 Bathroom in other non-institutional residence as the place of occurrence of the external cause
CPT/HCPCS: 36415; 70450; 71045; 71275; 80053; 81003; 81015; 83605; 83690; 83880; 84484; 85025; 85379; 93005; 94760; Q9967

== ENCOUNTER 2020-04-16 20:15 | Emergency (ER) | payer MEDICARE ==
[~2020-04-16 20:15] MED LIST: Iopamidol 370 76% 100 ML VIAL ONE
[2020-04-16 22:00] LABS: Bilirubin Negative (Negative); Blood, Urine Negative (Negative); Clarity Clear (Clear); Glucose, Urine (Dipstick) Negative (Negative); Ketone, Urine Negative (Negative); Leukocyte Trace (Negative); Nitrite Negative (Negative); Protein, Urine (Dipstick) Negative (Neg-Trace); Urobilinogen 0.2 mg/dL (Less than 2); pH, Urine 5.5 (5.0-9.0)
[2020-04-16] MEDS ORDERED: Dexamethasone 4 MG TAB ONE (22:09)
[2020-04-16] MEDS ORDERED: Azithromycin 250 MG TAB ONE (22:09)
[2020-04-16] MEDS ORDERED: Acetaminophen 500 MG TAB ONE (22:09)
[2020-04-16] MEDS ORDERED: Aspirin Chewable 81 MG TAB ONE (22:09)
[2020-04-16 22:11] LABS: Bacteria/HPF 1+ HPF (None Seen); Mucous/LPF Rare LPF (<2+); RBC/HPF None Seen HPF (0-3); Renal Epithelial 0-3 HPF (None Seen); Squamous Epithelial 0-3 HPF (0-3); WBC/HPF 0-3 HPF (0-3)
[2020-04-16 22:15] LABS: #Basophils 0.1 thou/uL (0.0-0.2); #Lymphocytes 0.8 thou/uL (1.20-3.40); #Monocytes 0.4 thou/uL (0.11-0.59); #Neutrophils 4.1 thou/uL (1.40-6.50); %Basophils 0.9 % (0.0-1.0); %Eosinophils 0.1 % (0.0-10.0); %Lymphocytes 15.4 % (21.0-51.0); %Monocytes 8.1 % (0.0-10.0); %Neutrophils 75.4 % (42.0-75.0); Hemoglobin 13.1 g/dL (12.0-16.0); Mean Corpuscular HGB CONC 33.2 g/dL (32.0-36.0); Mean Corpuscular Hemoglobin 30.7 pg (27.0-31.0); Mean Corpuscular Volume 92.6 fL (78.0-98.0); Mean Platelet Volume 7.5 fL (7.4-10.4); Platelet Count 237 thou/uL (130-400); RBC Distribution Width 12.3 % (11.5-14.5); Red Blood Cell (RBC) Count 4.26 mill/uL (4.20-5.40); White Blood Cell (WBC) Count 5.4 thou/uL (4.8-10.8)
[2020-04-16 22:18] LABS: ALT (SGPT) 29 U/L (8-55); AST (SGOT) 40 U/L (5-34); Albumin 3.4 g/dL (3.4-4.8); Alkaline Phosphatase 83 U/L (40-110); Anion Gap 16 mmol/L (10-20); BUN (Urea Nitrogen) 21 mg/dL (9.8-20.1); Bilirubin, Total 0.4 mg/dL (0.2-1.2); CK (CPK) 23 U/L (29-168); Calc. Creatinine Clearance 0 mL/min (70-130); Calcium 8.8 mg/dL (7.8-10.44); Carbon Dioxide 23 mmol/L (23-31); Chloride 102 mmol/L (98-107); Globulin 2.9 g/dL (2.4-3.5); Glucose 116 mg/dL (83-110); Potassium 4.2 mmol/L (3.5-5.1); Protein, Total 6.3 g/dL (6.0-8.3); Sodium 137 mmol/L (136-145)
[2020-04-16] MEDS ORDERED: Albuterol 200 PUFF (6.7GM INHALER) ONE (22:50)
--- NOTE | 2020-04-17 07:25 | CT ---
PRELIMINARY REPORT/[facility]/EMERGENCY AFTER HOURS PROCEDURE: EXAM: CTA Chest with Intravenous Contrast CLINICAL HISTORY: COUGH, SOB, ELEV D DIMER, ER PT, TECHNIQUE: Axial CTA images of the chest with intravenous contrast. Three-dimensional MIP/volume rendered reform ations were performed. CONTRAST: With; 88 MLS ISO 370 COMPARISON: None provided. FINDINGS: PULMONARY ARTERIES There is no intraluminal filling defect suspicious for PE. AORTA No thoracic aortic aneurysm or dissection. LUNGS There are multifocal airspace opacities in the lungs predominantly subpleural basilar in distribution PLEURAL SPACES No pleural effusion. No pneumothorax. HEART AND MEDIASTINUM Heart is enlarged. There is evidence of hilar and subcarinal lymphadenopathy. No dominant mass. LYMPH NODES No lymphadenopathy. BONES No focal osseous abnormality or acute fracture. CHEST WALL AND UPPER ABDOMEN Images through the upper abdomen are unremarkable. The chest wall is unremarkable. MISCELLANEOUS: Bilateral ear thyroid gland is multinodular and extends to the thoracic inlet. IMPRESSION: No evidence for acute pulmonary embolus Findings consistent with multifocal pneumonia. This pattern can be seen with COVID 19 pneumonia. ELECTRONICALLY SIGNED BY: Martine Madrigal MD Apr 16, 2020 11:46:46 PM BASE DRAW OPERATOR This report is intended for review by the ordering physician only, in accordance of law. If you recei ve this report in error, please call [facility] at [phone]. FINAL REPORT CT ANGIO CHEST: Date: 04/16/2020 Comparison made with the 02/25/2020 study. In the interval, there has been the appearance of multiple patchy ground-glass infiltrates bilaterall y, all lobes. The findings are consistent with multifocal infection, and COVID not uncommonly shows t his pattern. The infiltrates are somewhat peripheral in nature and worst in the lung bases, though th ey are present in all sections. The pulmonary arteries fill very well and show no defects to suggest emboli. There is no sign of aort ic aneurysm or dissection. No mediastinal mass or significant adenopathy was seen. The heart is mildl y generous in size. As before, it was noted that the thyroid gland is rather large. The scans through the upper abdomen showed no abnormalities in the areas scanned. IMPRESSION: 1. No evidence of pulmonary embolism. 2. Interval appearance of patchy ground-glass infiltrates, all lobes, consistent with multifocal pne umonia. COVID is strongly suspected. Report in agreement with preliminary reading by [facility]. POS: HOME
--- NOTE | 2020-04-17 07:27 | RAD ---
PORTABLE CHEST: Date: 04/16/2020 An AP portable film at 2129 hours is compared with an 02/25/2020 study. There are the beginnings of some stringy infiltrates in the lower half of the chest that were not pre sent before. Some may be in the lingula and others in the left lower lobe. There are probably some in the right lower lobe. The upper lobes seem relatively spared. There is no vascular congestion or demetrius ma. No large pleural effusions are seen. The heart size is normal. IMPRESSION: Interval appearance of stringy basilar infiltrates. Infection as an etiology should be considered and a COVID test would be recommended. POS: HOME
[2020-04-17 18:57] LABS: SARS-CoV-2 MS2 Positive; SARS-CoV-2 N Gene Positive; SARS-CoV-2 S Gene Positive; SARS-CoV-2 by NAA DETECTED (NotDetected); SARS-CoV-2 orf1ab Positive
== END 2020-04-17 00:10 | disposition home or self-care (01) ==
LOC: BURERS 20:15
DX: U07.1 COVID-19 (principal); J12.82 Pneumonia due to coronavirus disease 2019; K21.9 Gastro-esophageal reflux disease without esophagitis; J45.909 Unspecified asthma, uncomplicated
CPT/HCPCS: 71045; 71275; 80053; 82550; 83605; 83880; 84484; 85025; 85379; 87804 ×2; 93005; U0003; 81003; 81015; 87635; J8540; Q9967

== ENCOUNTER 2020-05-20 03:38 | Emergency (ER) | payer MEDICARE ==
[2020-05-20 04:35] LABS: Bilirubin Negative (Negative); Blood, Urine Negative (Negative); Clarity Clear (Clear); Glucose, Urine (Dipstick) Negative (Negative); Ketone, Urine Negative (Negative); Leukocyte Negative (Negative); Nitrite Negative (Negative); Protein, Urine (Dipstick) Negative (Neg-Trace); Urobilinogen 0.2 mg/dL (Less than 2); pH, Urine 5.5 (5.0-9.0)
[2020-05-20] MEDS ORDERED: Meclizine HCl 25 MG TAB ONE (04:43)
[2020-05-20 04:51] LABS: Anion Gap 13 mmol/L (10-20); BUN (Urea Nitrogen) 19 mg/dL (9.8-20.1); Calc. Creatinine Clearance 0 mL/min (70-130); Calcium 9.1 mg/dL (7.8-10.44); Carbon Dioxide 25 mmol/L (23-31); Chloride 108 mmol/L (98-107); Glucose 107 mg/dL (83-110); Potassium 4.1 mmol/L (3.5-5.1); Sodium 142 mmol/L (136-145)
[2020-05-20 04:55] LABS: White Blood Cell (WBC) Count 4.6 thou/uL (4.8-10.8)
[2020-05-20 04:56] LABS: Hemoglobin 13.4 g/dL (12.0-16.0); Mean Corpuscular HGB CONC 32.4 g/dL (32.0-36.0); Mean Corpuscular Hemoglobin 31.2 pg (27.0-31.0); Mean Corpuscular Volume 96.3 fL (78.0-98.0); RBC Distribution Width 13.9 % (11.5-14.5)
[2020-05-20 04:57] LABS: Mean Platelet Volume 7.7 fL (7.4-10.4); Platelet Count 281 thou/uL (130-400)
[2020-05-20 05:30] LABS: Band 1 % (5-11); Lymphocytes 38 % (21-51); MDiff Complete? YES; Monocytes 10 % (0-10); Neutrophil 46 % (42-75); Platelet Morphology Comment Appears Adequate; RBC Morphology Normal; Reactive Lymphocytes 3 % (0-10)
--- NOTE | 2020-05-20 10:14 | CT ---
PRELIMINARY REPORT/[facility]/EMERGENCY AFTER HOURS PROCEDURE: EXAM: CT Head Without Intravenous Contrast. CLINICAL HISTORY: STATES SHE HAD A CONCUSSION A FEW MONTHS PRIOR AND FOR PAST 2 DAYS SHE IS UNSTABLE ON HER FEET AND TECHNIQUE: Axial computed tomography images of the head/brain without intravenous contrast. COMPARISON: None provided. FINDINGS: BRAIN: No acute intraparenchymal hemorrhage. No mass lesion. No CT evidence for acute territorial infarct. N o midline shift or extra-axial collection. Mild prominence of the sulci and ventricles consistent wi th age-related parenchymal volume loss. VENTRICLES: No hydrocephalus. ORBITS: The orbits are unremarkable. SINUSES AND MASTOIDS: The paranasal sinuses and mastoid air cells are clear. SOFT TISSUES: No significant facial or scalp soft tissue swelling evident. No radiopaque foreign body is seen. BONES: No acute skull fracture. IMPRESSION: No acute intracranial abnormality. ELECTRONICALLY SIGNED BY: Nikita Oseguera MD May 20, 2020 4:32:24 AM SCRAP PICKER This report is intended for review by the ordering physician only, in accordance of law. If you recei ve this report in error, please call [facility] at [phone]. FINAL REPORT EMERGENCY AFTER HOURS CT OF THE BRAIN WITHOUT CONTRAST: Comparison is made with the 02/25/2020 study. There has been no adverse interval change. The ventricl es are normal in size with no shift. No intracranial bleeding, mass, or sign of stroke found. Mastoid air cells are clear. Each IAC was normal in appearance. I can visualize ossicles in the inner ear in similar positions bilaterally. The skull is normal in appearance. IMPRESSION: No significant intracranial findings. No adverse change since the prior study. Report in agreement with the preliminary reading by [facility]. POS: HOME
== END 2020-05-20 06:22 | disposition short-term general hospital (02) ==
LOC: BURERS 03:38
DX: R27.0 Ataxia, unspecified (principal); R51.9 Headache, unspecified; K21.9 Gastro-esophageal reflux disease without esophagitis; Z79.899 Other long term (current) drug therapy
CPT/HCPCS: 70450; 80048; 81003; 85025

== ENCOUNTER 2021-06-20 07:42 | Emergency (ER) | payer MEDICARE ==
[2021-06-20 08:41] LABS: Bilirubin Negative (Negative); Blood, Urine Negative (Negative); Clarity Clear (Clear); Glucose, Urine (Dipstick) Negative (Negative); Ketone, Urine Negative (Negative); Leukocyte Negative (Negative); Nitrite Negative (Negative); Protein, Urine (Dipstick) Negative (Neg-Trace); Specific Gravity, Urine 1.015 (1.005-1.030); Urobilinogen 0.2 mg/dL (Less than 2); pH, Urine 7.5 (5.0-9.0)
[2021-06-20 08:45] LABS: #Basophils 0.1 thou/uL (0.0-0.2); #Eosinphils 0.1 thou/uL (0.0-0.7); #Lymphocytes 1.5 thou/uL (1.20-3.40); #Monocytes 0.3 thou/uL (0.11-0.59); #Neutrophils 2.2 thou/uL (1.40-6.50); %Basophils 1.5 % (0.0-1.0); %Eosinophils 2.3 % (0.0-10.0); %Lymphocytes 36.5 % (21.0-51.0); %Monocytes 7.5 % (0.0-10.0); %Neutrophils 52.3 % (42.0-75.0); Hemoglobin 13.1 g/dL (12.0-16.0); Mean Corpuscular HGB CONC 33.7 g/dL (32.0-36.0); Mean Corpuscular Volume 94.9 fL (78.0-98.0); Mean Platelet Volume 8.3 fL (7.4-10.4); Platelet Count 220 thou/uL (130-400); RBC Distribution Width 13.3 % (11.5-14.5); White Blood Cell (WBC) Count 4.2 thou/uL (4.8-10.8)
[2021-06-20 08:57] LABS: ALT (SGPT) 18 U/L (8-55); AST (SGOT) 16 U/L (5-34); Albumin 3.9 g/dL (3.4-4.8); Alkaline Phosphatase 39 U/L (40-110); Anion Gap 12 mmol/L (10-20); BUN (Urea Nitrogen) 12 mg/dL (9.8-20.1); Bilirubin, Total 0.6 mg/dL (0.2-1.2); Calc. Creatinine Clearance 0 mL/min (70-130); Calcium 8.9 mg/dL (7.8-10.44); Carbon Dioxide 27 mmol/L (23-31); Chloride 106 mmol/L (98-107); Glucose 95 mg/dL (83-110); Protein, Total 5.9 g/dL (5.8-8.1); Sodium 141 mmol/L (136-145)
== END 2021-06-20 10:12 | disposition home or self-care (01) ==
LOC: BURERS 07:42
DX: H81.13 Benign paroxysmal vertigo, bilateral (principal); K21.9 Gastro-esophageal reflux disease without esophagitis; J45.909 Unspecified asthma, uncomplicated
CPT/HCPCS: 70450; 80053; 81003; 84484; 85025; 93005; 94760